=== PATIENT | male | born 1955 | race Caucasian/White ===

== ENCOUNTER 2017-04-29 11:33 | Inpatient (IN) | payer OTHER ==
[2017-04-29] MEDS ORDERED: NS 1000 ML 1,000 ML IV ONE (11:49)
[2017-04-29] MEDS ORDERED: NS 1000 ML 1,000 ML ONE (12:03)
[2017-04-29 12:08] LABS: BASOPHILS % (AUTO) 0.3 % (0.2-1.0); EOSINOPHILS % (AUTO) 0.4 % (0.9-2.9); HEMATOCRIT 42.8 % (42.0-54.0); HEMOGLOBIN 14.3 g/dL (13.5-18.0); LYMPHOCYTES % (AUTO) 7.8 % (21.0-51.0); MEAN CORPUSCULAR HEMOGLOBIN 31.3 pg (27.0-34.0); MEAN CORPUSCULAR HGB CONC 33.5 g/dL (33.0-35.0); MEAN CORPUSCULAR VOLUME 93.4 fL (80.0-100.0); MEAN PLATELET VOLUME 9.3 fL (7.4-11.0); MONOCYTES # (AUTO) 0.3 x10^3/uL (0.3-0.8); MONOCYTES % (AUTO) 2.5 % (0.0-13.0); NEUTROPHILS # (AUTO) 10.9 x10^3/uL (2.2-4.8); PLATELET COUNT 198 X10^3/uL (150.0-450.0); RED BLOOD COUNT 4.58 X10^6/uL (4.7-6.0); RED CELL DISTRIBUTION WIDTH 13.8 % (11.6-16.5); WHITE BLOOD COUNT 12.2 X10^3/uL (3.6-10.0)
--- NOTE | 2017-04-29 12:11 | RAD ---
History: Shortness of breath, cough for 2 weeks Study: Chest two views Findings: PA and left lateral projections of the chest demonstrates normal heart size. There is calci fication of the aortic arch and tortuosity of the descending aorta. There is dense consolidation of a ssess of the entirety of the right upper lobe. Ill-defined density in the right infrahilar area is al so present. There appear to be tiny bilateral pleural effusions. Impression: Right upper lobe and right middle lobe pneumonia is a. Follow-up to complete resolution i s recommended to exclude underlying neoplasm. Reported By:
[2017-04-29 12:13] LABS: BLOOD UREA NITROGEN 28 mg/dL (7-18); CALCIUM 8.7 mg/dL (8.5-10.1); CARBON DIOXIDE 29.8 mmol/L (21-32); CHLORIDE 104 mmol/L (98-107); COR NA(FOR HYPERGLY) 143 mmol/L (136-145); CREATININE 1.32 mg/dL (0.70-1.30); SODIUM 142 mmol/L (136-145); eGFR BLACK RACES > 60 (>60); eGFR NON BLACK RACES 58 (>60)
--- NOTE | 2017-04-29 12:25 | DR.GENAD ---
HPI - PCP Primary Care Physician: NONE - Complaint/Symptoms Chief Complaint Doctors Comments: Patient was diagnosed with pneumonia two days ago at [facility]. he was given a trial of outpatient management. Today his oxygen saturation had decreased from 95% to 86%. He was on amoxicillin and zithromycin. He has dyspnea. He admits to a pack per day cigarettes for years. He denies cardiac disease Chief Complaint:: "THEY SAY I HAVE PNEUMONIA, PT VERY WEAK HAVING A HARD TIME WALKING" - Source History Provided: Patient - Mode of Arrival Mode of Arrival: Ambulatory - Timing Onset of Chief Complaint: 04/25/17 PMH - PMH Past Medical History: Yes Past Medical History: Arthritis Past Surgical History: Yes Past Surgical History Comment: BENJI CONTRERAS - Family History History of Family Medical Conditions: No - Social History Does patient currently use any type of tobacco product: Yes Have you used tobacco products in the last 12 months: Yes Type of Tobacco Use: Cigarettes How many years tobacco product used: 45 Does any household member use tobacco: No Alcohol Use: None Do you use any recreational Drugs:: No Lives With: Family Lives Where: Home - infectious screening In the last 2 months have you had wt loss of >10#?: NO Have you had fever, night sweats or hemotysis?: No Have you traveled outside the country in the last 6 months?: No Isolation: Standard ROS - Review of Systems Eyes: No Symptoms Reported ENTM: No Symptoms Reported Respiratoy: Non-Productive Cough Cardiovascular: No Symptoms Reported Gastrointestinal/Abdominal: No Symptoms Reported Genitourinary: No Symptoms Reported Neurological: No Symptoms Reported Musculoskeletal: No Symptoms Reported Integumentary: No Symptoms Reported Hematologic/Lymphatic: No Symptoms Reported Endocrine: No Symptoms Reported Psychiatric: No Symptoms Reported All Other Systems: Reviewed and Negative PE - Vital Signs Vitals: Temperature 98 F Pulse Rate [Left Brachial] 103 Pulse Rate 108 Respiratory Rate 25 Blood Pressure [Left Arm] 133/78 Blood Pressure 121/73 O2 Sat by Pulse Oximetry 91 - General General Appearance: Alert, In Distress - Head Head Exam: Normal Inspection, Atraumatic - Eyes Eye exam: Normal Appearance, PERRL, EOMI - ENT ENT Exam: Normal Exam External Ear Exam: Normal External Inspection TM/Canal Exam: Bilateral Normal Nose Exam: Normal Nose Exam Mouth Exam: Normal Inspection Throat Exam: Normal Inspection - Neck Neck Exam: Normal Inspection, Full ROM - Chest Chest Inspection: Normal Inspection - Respiratory Respiratory Exam: Normal Lung Sounds Bilat Respiratory Exam: Bilateral Clear to Auscultation - Cardiovascular Cardiovascular Exam: Regular Rate, Normal Rhythm - Abdominal Exam Abdominal Exam: Normal Inspection Abdominal Tenderness: negative: RUQ, RLQ, LUQ, LLQ, Epigastrium, Suprapubic, Diffuse, Mild, Moderate, Severe, Other - Extremities Extremities Exam: Normal Inspection, Full ROM - Back Back Exam: Normal Inspection - Neurologic Neurological Exam: Alert, Oriented X3, CN II-XII Intact - Psychiatric Psychiatric Exam: Normal Affect - Skin Skin Exam: Warm, Dry Course - Reevaluation 1st: Unchanged ROR - Labs Reviewed Result Diagrams: 04/29/17 11:55 04/29/17 11:55 Laboratory: 04/29/17 12:43 Sputum - Expectorated Sputum - Final WBC 12.2 X10^3/uL (3.6-10.0) H 04/29/17 11:55 RBC 4.58 X10^6/uL (4.7-6.0) L 04/29/17 11:55 Hgb 14.3 g/dL (13.5-18.0) 04/29/17 11:55 Hct 42.8 % (42.0-54.0) 04/29/17 11:55 MCV 93.4 fL (80.0-100.0) 04/29/17 11:55 MCH 31.3 pg (27.0-34.0) 04/29/17 11:55 MCHC 33.5 g/dL (33.0-35.0) 04/29/17 11:55 RDW 13.8 % (11.6-16.5) 04/29/17 11:55 Plt Count 198 X10^3/uL (150.0-450.0) 04/29/17 11:55 MPV 9.3 fL (7.4-11.0) 04/29/17 11:55 Neut % 89.0 % (42.0-75.0) H 04/29/17 11:55 Lymph % 7.8 % (21.0-51.0) L 04/29/17 11:55 [place] % 2.5 % (0.0-13.0) 04/29/17 11:55 Eos % 0.4 % (0.9-2.9) L 04/29/17 11:55 Baso % 0.3 % (0.2-1.0) 04/29/17 11:55 Neut # 10.9 x10^3/uL (2.2-4.8) H 04/29/17 11:55 Lymph # 1.0 X10^3/uL (1.3-2.9) L 04/29/17 11:55 [place] # 0.3 x10^3/uL (0.3-0.8) 04/29/17 11:55 Eos # 0.0 x10^3/uL (0.0-0.2) 04/29/17 11:55 Baso # 0.0 X10^3/uL (0.0-0.1) 04/29/17 11:55 Absolute Nucleated RBC 0.0 /100WBC 04/29/17 11:55 Sample Site rbra 04/29/17 12:35 ABG pH 7.460 (7.35-7.45) H 04/29/17 12:35 ABG pCO2 37.0 mmHg (35.0-45.0) 04/29/17 12:35 ABG pO2 47.0 mmHg (80.0-100.0) L* 04/29/17 12:35 ABG HCO3 26.3 mmol/L (22-26) H 04/29/17 12:35 ABG O2 Saturation 85.0 % (90-100) L 04/29/17 12:35 ABG Base Excess 2.5 mmol/L (-2.0-2.0) H 04/29/17 12:35 Bruce Test poss 04/29/17 12:35 A-a Gradient 56.0 mmHg 04/29/17 12:35 FiO2 21 04/29/17 12:35 Blood Gas Comments elvin well gb 04/29/17 12:35 Sodium 142 mmol/L (136-145) 04/29/17 11:55 Corrected Sodium 143 mmol/L (136-145) 04/29/17 11:55 Potassium 3.4 mmol/L (3.5-5.1) L 04/29/17 11:55 Chloride 104 mmol/L (98-107) 04/29/17 11:55 Carbon Dioxide 29.8 mmol/L (21-32) 04/29/17 11:55 BUN 28 mg/dL (7-18) H 04/29/17 11:55 Creatinine 1.32 mg/dL (0.70-1.30) H 04/29/17 11:55 Est GFR (MDRD) Af Amer > 60 (>60) 04/29/17 11:55 Est GFR (MDRD) Non-Af 58 (>60) L 04/29/17 11:55 Glucose 146 mg/dL (65-99) H 04/29/17 11:55 Lactic Acid 2.3 mmol/L (0.4-2.0) H 04/29/17 12:26 Calcium 8.7 mg/dL (8.5-10.1) 04/29/17 11:55 - XRAY XRAY Interpreted by: Radiologist (Chest:Heart size is normal. There is calcification of the aortic arch and tortuosity of the desending aorta. There is dense consolidation of assess of the entirety of the right upper lobe. There is a ill defined density in the right infrahiar area is also present. There appear to be tiny bilateral pleural effusions.. Impression: right upper lobe and right middle lobe pneumonia.) - Diagnosis Discharge Problem: Hypoxia Pneumonia involving right lung Qualifiers: Pneumonia type: due to unspecified organism Lung location: upper lobe of lung Qualified Code(s): J18.1 - Lobar pneumonia, unspecified organism Right middle lobe pneumonia Qualifiers: Aspiration pneumonia type: unspecified - Discharge Plan Condition: Stable - Follow ups/Referrals Follow ups/Referrals: NFD,None [Primary Care Provider] - 3 days - Instructions
[2017-04-29 12:44] LABS: ABG BASE EXCESS 2.5 mmol/L (-2.0-2.0); ABG HCO3 26.3 mmol/L (22-26)
[2017-04-29 12:45] LABS: FRACTIONATED INSPIRED OXYGEN 21
[2017-04-29] MEDS ORDERED: LEVAQUIN PREMIX IV 750 MG 750 MG/150 ML BAG IV ONE ×2 (12:55→12:56)
[2017-04-29] MEDS ORDERED: DUONEB 0.5 MG/3 MG NEB PRN (14:33)
[2017-04-29 15:19] VITALS: BMI 26.8
[2017-04-29] MEDS ORDERED: FLUVIRIN IM ONE (15:20)
[2017-04-29] MEDS ORDERED: NS 1/2 1000 ML IV 1,000 ML IV ONE (15:39)
[2017-04-29] MEDS: NS 1/2 1000 ML IV 1,000 ML IV SCH (15:42)
[2017-04-29] MEDS: DUONEB 0.5 MG/3 MG NEB PRN (16:41)
[2017-04-29] MEDS: ZOSYN VIAL 4.5 GM 4.5 GM in NS 100 ML IV + SPIKE MINIBAG* 100 ML IV SCH (21:23)
[2017-04-30] MEDS: DUONEB 0.5 MG/3 MG NEB PRN ×4 (00:50→16:17)
[2017-04-30] MEDS: ZOSYN VIAL 4.5 GM 4.5 GM in NS 100 ML IV + SPIKE MINIBAG* 100 ML IV SCH ×3 (06:16→22:01)
[2017-04-30] MEDS: NS 1/2 1000 ML IV 1,000 ML IV SCH (06:16)
[2017-04-30 06:21] LABS: BASOPHILS % (AUTO) 0.3 % (0.2-1.0); EOSINOPHILS # (AUTO) 0.1 x10^3/uL (0.0-0.2); EOSINOPHILS % (AUTO) 0.9 % (0.9-2.9); HEMATOCRIT 39.2 % (42.0-54.0); HEMOGLOBIN 13.3 g/dL (13.5-18.0); LYMPHOCYTES # (AUTO) 0.9 X10^3/uL (1.3-2.9); LYMPHOCYTES % (AUTO) 10.5 % (21.0-51.0); MEAN CORPUSCULAR HEMOGLOBIN 31.2 pg (27.0-34.0); MEAN CORPUSCULAR HGB CONC 33.9 g/dL (33.0-35.0); MEAN CORPUSCULAR VOLUME 92.1 fL (80.0-100.0); MEAN PLATELET VOLUME 9.4 fL (7.4-11.0); MONOCYTES # (AUTO) 0.4 x10^3/uL (0.3-0.8); MONOCYTES % (AUTO) 4.9 % (0.0-13.0); NEUTROPHILS # (AUTO) 6.9 x10^3/uL (2.2-4.8); NEUTROPHILS % (AUTO) 83.4 % (42.0-75.0); PLATELET COUNT 176 X10^3/uL (150.0-450.0); RED BLOOD COUNT 4.26 X10^6/uL (4.7-6.0); RED CELL DISTRIBUTION WIDTH 13.9 % (11.6-16.5); WHITE BLOOD COUNT 8.2 X10^3/uL (3.6-10.0)
[2017-04-30 06:31] LABS: ALANINE AMINOTRANSFERASE 67 Units/L (12-78); ALBUMIN 1.9 g/dL (3.4-5.0); ALKALINE PHOSPHATASE 99 Units/L (46-116); ASPARTATE AMINO TRANSFERASE 283 Units/L (15-37); BLOOD UREA NITROGEN 17 mg/dL (7-18); CALCIUM 8.3 mg/dL (8.5-10.1); CARBON DIOXIDE 26.5 mmol/L (21-32); CHLORIDE 102 mmol/L (98-107); COR NA(FOR HYPERGLY) 138 mmol/L (136-145); CREATININE 1.09 mg/dL (0.70-1.30); SODIUM 137 mmol/L (136-145); TOTAL PROTEIN 5.7 g/dL (6.4-8.2); eGFR BLACK RACES > 60 (>60); eGFR NON BLACK RACES > 60 (>60)
--- NOTE | 2017-04-30 07:23 | RAD ---
HISTORY: Shortness of breath, cough. Symptoms for 2 weeks. Study: Single-view chest, done portably Comparison: 04/29/2017 Findings: Cardiac monitoring electrodes are noted on the chest. The trachea is midline. Heart size is normal. I ncreased interstitial markings are present bilaterally. More focal density involving the right hilar region extending into the right lower lobe is again seen. The upper lobe density may be more dense th an on prior studies. Findings are concerning for neoplastic process, perhaps a proximal obstruction. CT evaluation of the chest and/or bronchoscopy is recommended. No infiltrate is seen on the left. The osseous structures are intact. IMPRESSION: Further increase in density in the right perihilar process extending into right upper and right lower lobe regions. The central obstruction may be present. Neoplasm is a leading consideration. CT evalua tion of the chest and/or bronchoscopy is recommended. Reported By:
[2017-04-30] MEDS ORDERED: MAGNESIUM SULFATE 1 GM/100 mL PREMIX 1 GM/100 ML BAG IV PRN (07:24)
[2017-04-30] MEDS ORDERED: K-LYTE EFFERVESCENT PO PRN (07:24)
[2017-04-30] MEDS ORDERED: NS 100 ML IV 100 ML IV ONE ×2 (09:07→13:02)
[2017-04-30] MEDS: LEVAQUIN PREMIX IV 750 MG 750 MG/150 ML BAG IV SCH (10:10)
[2017-04-30] MEDS: XANAX PO SCH ×3 (10:17→22:02)
[2017-04-30] MEDS: K-RIDER 10 MEQ/NS 100 ML 10 MEQ/100 ML BAG IV PRN ×2 (12:00→13:04)
--- NOTE | 2017-04-30 13:05 | DR.H&P ---
H&P - History & Physical for Day of: H&P Date: 04/29/17 - Chief Complaint Chief Complaint: FEVER, SOB, COUGH WHEEZING - Allergies Allergies/Adverse Reactions: Allergies Allergy/AdvReac Type Severity Reaction Status Date / Time No Known Drug Allergies Allergy Verified 04/29/17 11:34 - History of Present Illness History of Present Illness: patient is a 62-year-old white male who is an ER admission to ICU after presenting with hypoxia and complaints of cough cold and congestion for several days. Patient's chest x-ray revealed a lower lobe pneumonia. Patient was admitted to ICU for further evaluation of shortness of breath and pneumonia. Patient started on respiratory therapy, blood and sputum cultures ordered as well as supplemental O2. We'll resume any home medications , cardiac monitoring, oxygen saturation monitoring. Patient states he has been sick approximately a week was previously seen in urgent care clinic and is taking by mouth antibiotics prior to admission without improvement. Patient denies any significant past medical history he is a half a pack per day smoker however no history of COPD, heart disease, high blood pressure or diabetes. - Past Medical History Past Medical History: Arthritis - Family History Family Medical History: Diabetes Mellitus, Cancer, [place], Coronary Artery Disease, Hypertension - Social History Does patient currently use any type of tobacco product: Yes Have you used tobacco products in the last 12 months: Yes Type of Tobacco Use: Cigarettes How many years tobacco product used: 11 Does any household member use tobacco: Yes Alcohol Use: Occasionally Drug Use: None - Medications Home Medications: Amoxicillin [AMOXIL CAP 500 MG *] 1 tab PO DAILY 04/29/17 [History Confirmed ] Azithromycin [ZITHROMAX Tab 250 mg *] 1 tab PO DAILY 04/29/17 [History Confirmed 04/29/17] Benzonatate [Benzonatate] 1 tab PO PRN PRN 04/29/17 [History Confirmed 04/29/17] - Review of Systems Constitutional: Fever, Weakness, Malaise ENT: No Symptoms Reported Respiratory: Shortness of Breath, Sputum, Wheezing Cardiovascular: No Symptoms Reported Gastrointestinal: No Symptoms Reported Genitourinary: No Symptoms Reported Musculoskeletal: No Symptoms Reported Skin: No Symptoms Reported Neurological: No Symptoms Reported - Physical Exam Vital Signs: Temperature 100.3 F Pulse Rate [Left Brachial] 114 Pulse Rate 116 Respiratory Rate 10 Blood Pressure [Left Arm] 131/82 Blood Pressure 121/73 O2 Sat by Pulse Oximetry 90 Oriented: Normal Eyes: Normal Ear: Normal Nose: Normal Throat: Normal Respiratory: Rhonchi Throughout, RLL Diminished, LLL Diminished Cardiovascular: Normal : Normal Auscultation: Bowel Sounds: Normal Palpation: Normal Tenderness: Normal Skin: Normal Musculoskeletal: Normal Psychiatric: Anxiety Affect: Anxious Speech Pattern: Clear, Appropriate - Assessment/Plan (1) Pneumonia involving right lung Qualifiers: Pneumonia type: due to unspecified organism Lung location: upper lobe of lung Qualified Code(s): J18.1 - Lobar pneumonia, unspecified organism Status: Acute Plan: admit, cardiac monitoring oxygen saturation monitoring respiratory therapy , IV antibiotics, sputum specimen, admission labs and repeat a.m. labs, supplemental O2, IV hydration (2) Hypoxia Status: Acute
[2017-04-30] MEDS ORDERED: FLUVIRIN IM ONE (13:06)
[2017-04-30] MEDS: MAG-OX TAB PO PRN (13:07)
--- NOTE | 2017-04-30 14:40 | CT ---
HISTORY: Abnormal chest x-ray, pneumonia Study: CT chest with IV contrast Comparison: Chest x-ray done 04/30/2017 at 6:45 a.m.. Technique: Multiple axial images of the chest were obtained from the thoracic inlet to the upper abdo men during the administration of IV contrast. Coronal and sagittal images are also reviewed. Dose red uction techniques utilized automatic exposure control. Findings: There are multiple small lymph nodes are present in the central mediastinum which are likely reactive . a small pericardial effusion is present measuring about a cm or less in thickness. The thoracic ao rta is normal in its contour without evidence for aneurysmal dilatation. There are coronary artery ca lcifications present bilaterally, most notably in the LAD. The central pulmonary arterial system does not demonstrate central filling defects to suggest pulmonary emboli. Evaluation of the lung parenchyma reveals very dense infiltrate present involving the right upper lob e region involving anterior and apical posterior segments. Small amount of infiltrate is present in t he right middle lobe as well. Small amount of infiltrate is present in the left upper lobe region. Al though infiltrates are dense on the right side, there is still air bronchograms present. Findings hav e the appearance of inflammation; however, bronchoalveolar carcinoma may produce similar findings. No evidence of bronchial obstruction is seen. No significant hilar adenopathy is seen. A small right-si ded pleural effusion is present.. No pulmonary nodule or mass can be identified. The bony thorax is unremarkable in its appearance. There is a 4 cm simple cyst in the liver in the subcapsular region on the right. A small mass is present in the left adrenal gland which measures about 1.3 cm in size. This is hypo attenuating and likely represents an adrenal adenoma there is marked fatty change presen t involving the pancreas.. IMPRESSION: Extensive right upper lobe infiltrate. Lesser but still significant infiltrates are present involving the right middle and left upper lobe regions as well. These areas displayed air bronchograms and lik gigi is on an inflammatory basis. Bronchoalveolar carcinoma is a consideration. A right-sided pleural effusion is present. No significant adenopathy is seen. Reported By:
[2017-04-30] MEDS ORDERED: K-DUR TAB 20 MEQ PO ONE (19:07)
[2017-04-30] MEDS: K-DUR TAB 20 MEQ PO ONE (19:14)
[2017-04-30] MEDS ORDERED: NS 1/2 1000 ML IV 1,000 ML IV ONE (23:54)
[2017-05-01] MEDS: DUONEB 0.5 MG/3 MG NEB PRN ×5 (00:07→20:09)
[2017-05-01] MEDS: ZOSYN VIAL 4.5 GM 4.5 GM in NS 100 ML IV + SPIKE MINIBAG* 100 ML IV SCH ×3 (05:38→22:13)
[2017-05-01] MEDS: XANAX PO SCH ×3 (05:38→21:30)
[2017-05-01 06:21] LABS: BASOPHILS % (AUTO) 0.4 % (0.2-1.0); EOSINOPHILS # (AUTO) 0.1 x10^3/uL (0.0-0.2); EOSINOPHILS % (AUTO) 1.9 % (0.9-2.9); HEMOGLOBIN 13.3 g/dL (13.5-18.0); LYMPHOCYTES # (AUTO) 1.1 X10^3/uL (1.3-2.9); MEAN CORPUSCULAR HEMOGLOBIN 31.3 pg (27.0-34.0); MEAN CORPUSCULAR VOLUME 92.2 fL (80.0-100.0); MEAN PLATELET VOLUME 8.8 fL (7.4-11.0); MONOCYTES # (AUTO) 0.6 x10^3/uL (0.3-0.8); MONOCYTES % (AUTO) 8.6 % (0.0-13.0); NEUTROPHILS # (AUTO) 5.2 x10^3/uL (2.2-4.8); NEUTROPHILS % (AUTO) 74.1 % (42.0-75.0); PLATELET COUNT 171 X10^3/uL (150.0-450.0); RED BLOOD COUNT 4.23 X10^6/uL (4.7-6.0)
[2017-05-01 06:50] LABS: ALANINE AMINOTRANSFERASE 59 Units/L (12-78); ALBUMIN 1.9 g/dL (3.4-5.0); ALKALINE PHOSPHATASE 95 Units/L (46-116); ASPARTATE AMINO TRANSFERASE 128 Units/L (15-37); BLOOD UREA NITROGEN 11 mg/dL (7-18); CALCIUM 8.3 mg/dL (8.5-10.1); CARBON DIOXIDE 26.5 mmol/L (21-32); CHLORIDE 102 mmol/L (98-107); COR NA(FOR HYPERGLY) 139 mmol/L (136-145); CREATININE 0.93 mg/dL (0.70-1.30); MAGNESIUM 1.8 mg/dL (1.7-2.9); SODIUM 138 mmol/L (136-145); TOTAL PROTEIN 5.8 g/dL (6.4-8.2); eGFR BLACK RACES > 60 (>60); eGFR NON BLACK RACES > 60 (>60)
[2017-05-01 07:08] LABS: BAND NEUTROPHILS % 3 % (0-10); PLATELET MORPHOLOGY COMMENT NORMAL (NORMAL)
[2017-05-01] MEDS ORDERED: K-DUR TAB 20 MEQ PO ONE ×2 (08:45→16:36)
[2017-05-01] MEDS: LEVAQUIN PREMIX IV 750 MG 750 MG/150 ML BAG IV SCH (08:51)
[2017-05-01] MEDS: K-DUR TAB 20 MEQ PO ONE ×4 (08:52→16:42)
[2017-05-01] MEDS ORDERED: ROBITUSSIN DM ONE (13:38)
[2017-05-01] MEDS: ROBITUSSIN DM PO PRN (13:41)
[2017-05-01] MEDS ORDERED: SOLU-Medrol 40 MG VIAL ONE (15:05)
[2017-05-01] MEDS: SOLU-Medrol 125 MG VIAL IVP SCH ×2 (15:09→21:30)
[2017-05-01 15:34] LABS: MAGNESIUM 1.8 mg/dL (1.7-2.9)
[2017-05-01] MEDS: MAG-OX TAB PO PRN (16:40)
[2017-05-01] MEDS ORDERED: NS 1/2 1000 ML IV 1,000 ML IV ONE (21:09)
[2017-05-01] MEDS ORDERED: NS 100 ML IV 100 ML IV ONE (22:03)
[2017-05-01] MEDS ORDERED: ZOSYN VIAL 4.5 GM IV ONE (22:03)
[2017-05-01] MEDS: NS 1/2 1000 ML IV 1,000 ML IV SCH ×2 (22:45)
[2017-05-02 06:21] LABS: BASOPHILS % (AUTO) 0.2 % (0.2-1.0); HEMATOCRIT 42.3 % (42.0-54.0); HEMOGLOBIN 14.4 g/dL (13.5-18.0); LYMPHOCYTES # (AUTO) 0.9 X10^3/uL (1.3-2.9); LYMPHOCYTES % (AUTO) 10.2 % (21.0-51.0); MEAN CORPUSCULAR HEMOGLOBIN 31.5 pg (27.0-34.0); MEAN CORPUSCULAR VOLUME 92.6 fL (80.0-100.0); MEAN PLATELET VOLUME 9.2 fL (7.4-11.0); MONOCYTES # (AUTO) 0.2 x10^3/uL (0.3-0.8); MONOCYTES % (AUTO) 2.1 % (0.0-13.0); NEUTROPHILS # (AUTO) 7.3 x10^3/uL (2.2-4.8); NEUTROPHILS % (AUTO) 87.5 % (42.0-75.0); PLATELET COUNT 202 X10^3/uL (150.0-450.0); RED BLOOD COUNT 4.57 X10^6/uL (4.7-6.0); RED CELL DISTRIBUTION WIDTH 13.8 % (11.6-16.5); WHITE BLOOD COUNT 8.3 X10^3/uL (3.6-10.0)
[2017-05-02] MEDS ORDERED: ZOSYN VIAL 4.5 GM IV ONE ×3 (06:21→21:05)
[2017-05-02] MEDS ORDERED: NS 100 ML IV 100 ML IV ONE ×2 (06:22→14:35)
[2017-05-02 06:40] LABS: ALANINE AMINOTRANSFERASE 61 Units/L (12-78); ALBUMIN 1.9 g/dL (3.4-5.0); ALKALINE PHOSPHATASE 102 Units/L (46-116); ASPARTATE AMINO TRANSFERASE 64 Units/L (15-37); BLOOD UREA NITROGEN 17 mg/dL (7-18); CALCIUM 8.6 mg/dL (8.5-10.1); CARBON DIOXIDE 25.6 mmol/L (21-32); CHLORIDE 103 mmol/L (98-107); COR CA(FOR HYPOALB) 10.3 mg/dL (8.5-10.1); COR NA(FOR HYPERGLY) 144 mmol/L (136-145); CREATININE 0.87 mg/dL (0.70-1.30); SODIUM 140 mmol/L (136-145); TOTAL PROTEIN 6.2 g/dL (6.4-8.2); eGFR BLACK RACES > 60 (>60); eGFR NON BLACK RACES > 60 (>60)
[2017-05-02] MEDS: ZOSYN VIAL 4.5 GM 4.5 GM in NS 100 ML IV + SPIKE MINIBAG* 100 ML IV SCH ×3 (06:45→21:11)
[2017-05-02] MEDS: XANAX PO SCH ×3 (06:45→21:11)
[2017-05-02] MEDS: SOLU-Medrol 125 MG VIAL IVP SCH (06:45)
--- NOTE | 2017-05-02 08:46 | RAD ---
HISTORY: Pneumonia Study: Single-view chest, done portably Comparison: CT scan of the chest done 04/30/2017. Findings: Trachea is midline. The heart size is normal. There is aortic uncoiling. There is considerable improv ement in aeration is noted in the right upper lobe infiltrate. Milder infiltrates are present in left upper lobe and right middle lobe regions. These areas displays some improvement also. No new infiltr ate is seen. There is evidence of an old fracture of the right mid clavicle. Remainder of osseous str uctures are intact. IMPRESSION: Dense, but improving, infiltrates involving right upper lobe, left upper lobe and right middle lobe r egions. Reported By:
[2017-05-02] MEDS: LEVAQUIN PREMIX IV 750 MG 750 MG/150 ML BAG IV SCH (09:19)
[2017-05-02] MEDS: DUONEB 0.5 MG/3 MG NEB PRN (09:19)
[2017-05-02] MEDS ORDERED: MILK OF MAGNESIA PO PRN (11:14)
[2017-05-02] MEDS ORDERED: COLACE CAP 100 MG PO PRN (11:15)
[2017-05-02] MEDS: MAG-OX TAB PO PRN (11:24)
[2017-05-02] MEDS ORDERED: NS 100 ML IV + SPIKE MINIBAG* 100 ML IV ONE (21:06)
[2017-05-02] MEDS ORDERED: NS 1/2 1000 ML IV 1,000 ML IV ONE (21:09)
[2017-05-02] MEDS: NS 1/2 1000 ML IV 1,000 ML IV SCH (21:11)
[2017-05-02] MEDS: AMBIEN PO PRN (21:11)
[2017-05-02] MEDS: ROBITUSSIN DM PO PRN (21:11)
[2017-05-03] MEDS ORDERED: ZOSYN VIAL 4.5 GM IV ONE ×3 (05:20→20:31)
[2017-05-03] MEDS ORDERED: NS 100 ML IV 100 ML IV ONE ×3 (05:20→20:32)
[2017-05-03] MEDS: ZOSYN VIAL 4.5 GM 4.5 GM in NS 100 ML IV + SPIKE MINIBAG* 100 ML IV SCH ×3 (05:32→21:01)
[2017-05-03] MEDS: XANAX PO SCH ×3 (05:32→21:01)
[2017-05-03 05:37] LABS: BASOPHILS % (AUTO) 0.1 % (0.2-1.0); EOSINOPHILS % (AUTO) 0.1 % (0.9-2.9); HEMATOCRIT 37.5 % (42.0-54.0); HEMOGLOBIN 12.6 g/dL (13.5-18.0); LYMPHOCYTES # (AUTO) 1.7 X10^3/uL (1.3-2.9); LYMPHOCYTES % (AUTO) 10.6 % (21.0-51.0); MEAN CORPUSCULAR HEMOGLOBIN 31.1 pg (27.0-34.0); MEAN CORPUSCULAR HGB CONC 33.6 g/dL (33.0-35.0); MEAN CORPUSCULAR VOLUME 92.4 fL (80.0-100.0); MEAN PLATELET VOLUME 9.5 fL (7.4-11.0); MONOCYTES # (AUTO) 0.9 x10^3/uL (0.3-0.8); MONOCYTES % (AUTO) 5.4 % (0.0-13.0); NEUTROPHILS # (AUTO) 13.3 x10^3/uL (2.2-4.8); NEUTROPHILS % (AUTO) 83.8 % (42.0-75.0); PLATELET COUNT 210 X10^3/uL (150.0-450.0); RED BLOOD COUNT 4.06 X10^6/uL (4.7-6.0); RED CELL DISTRIBUTION WIDTH 13.7 % (11.6-16.5); WHITE BLOOD COUNT 15.8 X10^3/uL (3.6-10.0)
[2017-05-03 05:46] LABS: ALANINE AMINOTRANSFERASE 61 Units/L (12-78); ALBUMIN 1.7 g/dL (3.4-5.0); ALKALINE PHOSPHATASE 91 Units/L (46-116); ASPARTATE AMINO TRANSFERASE 44 Units/L (15-37); BLOOD UREA NITROGEN 23 mg/dL (7-18); CALCIUM 8.1 mg/dL (8.5-10.1); CARBON DIOXIDE 29.2 mmol/L (21-32); CHLORIDE 106 mmol/L (98-107); COR CA(FOR HYPOALB) 9.9 mg/dL (8.5-10.1); COR NA(FOR HYPERGLY) 140 mmol/L (136-145); SODIUM 137 mmol/L (136-145); TOTAL PROTEIN 4.8 g/dL (6.4-8.2); eGFR BLACK RACES > 60 (>60); eGFR NON BLACK RACES > 60 (>60)
[2017-05-03] MEDS: NS 1/2 1000 ML IV 1,000 ML IV SCH ×3 (06:36→21:02)
[2017-05-03] MEDS: LEVAQUIN PREMIX IV 750 MG 750 MG/150 ML BAG IV SCH (09:21)
[2017-05-03] MEDS: TYLENOL 325 MG TAB PO PRN (10:51)
[2017-05-03] MEDS: DUONEB 0.5 MG/3 MG NEB PRN (20:33)
[2017-05-03] MEDS ORDERED: NS 1/2 1000 ML IV 1,000 ML IV ONE (20:35)
[2017-05-03] MEDS: AMBIEN PO PRN ×2 (21:01→21:03)
[2017-05-03] MEDS: TUSSIONEX PENNKINETIC SUSP PO PRN (21:01)
[2017-05-03] MEDS: ROBITUSSIN DM PO PRN (21:01)
[2017-05-04] MEDS: TYLENOL 325 MG TAB PO PRN (01:41)
[2017-05-04] MEDS ORDERED: ZOSYN VIAL 4.5 GM IV ONE ×3 (05:05→20:10)
[2017-05-04] MEDS ORDERED: NS 100 ML IV 100 ML IV ONE ×3 (05:06→20:10)
[2017-05-04 05:32] LABS: ALANINE AMINOTRANSFERASE 59 Units/L (12-78); ALBUMIN 1.8 g/dL (3.4-5.0); ALKALINE PHOSPHATASE 75 Units/L (46-116); ASPARTATE AMINO TRANSFERASE 38 Units/L (15-37); BLOOD UREA NITROGEN 16 mg/dL (7-18); CALCIUM 8.2 mg/dL (8.5-10.1); CARBON DIOXIDE 29.2 mmol/L (21-32); CHLORIDE 103 mmol/L (98-107); COR NA(FOR HYPERGLY) 141 mmol/L (136-145); CREATININE 0.88 mg/dL (0.70-1.30); SODIUM 140 mmol/L (136-145); TOTAL PROTEIN 5.5 g/dL (6.4-8.2); eGFR BLACK RACES > 60 (>60); eGFR NON BLACK RACES > 60 (>60)
[2017-05-04] MEDS: XANAX PO SCH ×3 (05:32→21:04)
[2017-05-04] MEDS: ZOSYN VIAL 4.5 GM 4.5 GM in NS 100 ML IV + SPIKE MINIBAG* 100 ML IV SCH ×3 (05:33→21:02)
[2017-05-04 06:25] LABS: BASOPHILS # (AUTO) 0.2 X10^3/uL (0.0-0.1); BASOPHILS % (AUTO) 1.9 % (0.2-1.0); EOSINOPHILS # (AUTO) 0.3 x10^3/uL (0.0-0.2); EOSINOPHILS % (AUTO) 3.3 % (0.9-2.9); HEMATOCRIT 39.1 % (42.0-54.0); HEMOGLOBIN 13.1 g/dL (13.5-18.0); LYMPHOCYTES # (AUTO) 1.8 X10^3/uL (1.3-2.9); LYMPHOCYTES % (AUTO) 19.5 % (21.0-51.0); MEAN CORPUSCULAR HEMOGLOBIN 30.9 pg (27.0-34.0); MEAN CORPUSCULAR HGB CONC 33.5 g/dL (33.0-35.0); MEAN CORPUSCULAR VOLUME 92.2 fL (80.0-100.0); MEAN PLATELET VOLUME 9.1 fL (7.4-11.0); MONOCYTES # (AUTO) 0.5 x10^3/uL (0.3-0.8); MONOCYTES % (AUTO) 5.5 % (0.0-13.0); NEUTROPHILS # (AUTO) 6.5 x10^3/uL (2.2-4.8); NEUTROPHILS % (AUTO) 69.8 % (42.0-75.0); PLATELET COUNT 259 X10^3/uL (150.0-450.0); RED BLOOD COUNT 4.24 X10^6/uL (4.7-6.0); RED CELL DISTRIBUTION WIDTH 13.7 % (11.6-16.5); WHITE BLOOD COUNT 9.3 X10^3/uL (3.6-10.0)
[2017-05-04] MEDS: MAG-OX TAB PO PRN (06:45)
--- NOTE | 2017-05-04 06:48 | RAD ---
HISTORY: Follow-up pneumonia Study: Chest AP portable Comparison: 05/02/2017 Findings: The heart is within normal limits in size. No congestive heart failure is noted. Right upper and righ t lower lobe infiltrates are unchanged. The left lung is now free of alveolar infiltrates. The alveol ar infiltrates are superimposed on hyperinflation and interstitial lung changes bilaterally. No defin ite pleural effusions are identified. The bony thorax is unremarkable. IMPRESSION: Unchanged right upper and right lower lobe infiltrates Left lung free of acute alveolar infiltrates Hyperinflation with chronic interstitial lung changes Reported By:
[2017-05-04 07:01] LABS: BAND NEUTROPHILS % 3 % (0-10); PLATELET MORPHOLOGY COMMENT NORMAL (NORMAL)
[2017-05-04] MEDS: ROBITUSSIN DM PO PRN ×3 (08:18→21:03)
[2017-05-04] MEDS: LEVAQUIN PREMIX IV 750 MG 750 MG/150 ML BAG IV SCH (08:19)
[2017-05-04 10:21] LABS: ABG BASE EXCESS 8.2 mmol/L (-2.0-2.0)
[2017-05-04 10:22] LABS: ABG ALLEN TEST POS; ABG HCO3 31.9 mmol/L (22-26); FRACTIONATED INSPIRED OXYGEN 0.21
[2017-05-04] MEDS: DUONEB 0.5 MG/3 MG NEB PRN ×2 (11:36→16:26)
[2017-05-04] MEDS ORDERED: NS 250 ML IV 250 ML IV ONE (14:01)
[2017-05-04] MEDS ORDERED: ZITHROMAX INJ 500 MG VIAL IV ONE (14:01)
[2017-05-04] MEDS: ZITHROMAX INJ 500 MG VIAL 500 MG in NS 250 ML IV 250 ML IV SCH (14:50)
[2017-05-04] MEDS ORDERED: NS 1/2 1000 ML IV 1,000 ML IV ONE (19:53)
[2017-05-04] MEDS: NS 1/2 1000 ML IV 1,000 ML IV SCH ×2 (21:02→21:04)
[2017-05-04] MEDS: TUSSIONEX PENNKINETIC SUSP PO PRN (21:03)
[2017-05-04] MEDS: AMBIEN PO PRN (21:03)
[2017-05-04] MEDS: MAALOX or MYLANTA PO PRN (22:56)
[2017-05-05] MEDS ORDERED: NS 100 ML IV 100 ML IV ONE ×3 (04:57→20:43)
[2017-05-05] MEDS ORDERED: ZOSYN VIAL 4.5 GM IV ONE ×3 (04:57→20:42)
[2017-05-05] MEDS: ZOSYN VIAL 4.5 GM 4.5 GM in NS 100 ML IV + SPIKE MINIBAG* 100 ML IV SCH ×3 (05:05→21:14)
[2017-05-05] MEDS: XANAX PO SCH ×3 (05:06→21:14)
[2017-05-05 06:02] LABS: ALANINE AMINOTRANSFERASE 50 Units/L (12-78); ALKALINE PHOSPHATASE 75 Units/L (46-116); ASPARTATE AMINO TRANSFERASE 30 Units/L (15-37); BLOOD UREA NITROGEN 11 mg/dL (7-18); CALCIUM 8.3 mg/dL (8.5-10.1); CHLORIDE 102 mmol/L (98-107); COR CA(FOR HYPOALB) 9.9 mg/dL (8.5-10.1); COR NA(FOR HYPERGLY) 138 mmol/L (136-145); CREATININE 0.78 mg/dL (0.70-1.30); MAGNESIUM 1.9 mg/dL (1.7-2.9); SODIUM 137 mmol/L (136-145); TOTAL PROTEIN 5.7 g/dL (6.4-8.2); eGFR BLACK RACES > 60 (>60); eGFR NON BLACK RACES > 60 (>60)
[2017-05-05 06:21] LABS: BASOPHILS % (AUTO) 0.2 % (0.2-1.0); EOSINOPHILS # (AUTO) 0.3 x10^3/uL (0.0-0.2); EOSINOPHILS % (AUTO) 2.7 % (0.9-2.9); HEMATOCRIT 40.3 % (42.0-54.0); HEMOGLOBIN 13.6 g/dL (13.5-18.0); LYMPHOCYTES # (AUTO) 1.8 X10^3/uL (1.3-2.9); LYMPHOCYTES % (AUTO) 16.1 % (21.0-51.0); MEAN CORPUSCULAR HGB CONC 33.7 g/dL (33.0-35.0); MEAN CORPUSCULAR VOLUME 92.2 fL (80.0-100.0); MEAN PLATELET VOLUME 9.1 fL (7.4-11.0); MONOCYTES # (AUTO) 0.6 x10^3/uL (0.3-0.8); MONOCYTES % (AUTO) 5.3 % (0.0-13.0); NEUTROPHILS # (AUTO) 8.6 x10^3/uL (2.2-4.8); NEUTROPHILS % (AUTO) 75.7 % (42.0-75.0); PLATELET COUNT 312 X10^3/uL (150.0-450.0); RED BLOOD COUNT 4.37 X10^6/uL (4.7-6.0); RED CELL DISTRIBUTION WIDTH 13.7 % (11.6-16.5); WHITE BLOOD COUNT 11.4 X10^3/uL (3.6-10.0)
[2017-05-05 07:23] LABS: BAND NEUTROPHILS % 6 % (0-10)
[2017-05-05 07:24] LABS: PLATELET MORPHOLOGY COMMENT NORMAL (NORMAL)
--- NOTE | 2017-05-05 08:17 | CT ---
HISTORY: Pneumonia, shortness of breath Study: CT chest with contrast Comparison: Chest x-ray 05/04/2017 Technique: Axial post-contrast images with coronal and sagittal reformats. Dose reduction procedures were used with mA/kv adjusted for body size. Findings: Examination of the mediastinum demonstrated no evidence for mediastinal masses, enlarged mediastinal adenopathy, or enlarged hilar adenopathy. Nonenlarged precarinal nodes are present likely reactive. C alcific atherosclerotic change is present in a nondilated thoracic aorta. Coronary artery calcificati ons are present. There is a right pleural effusion present. A smaller minimal left pleural effusion i s present. No chest wall or axillary abnormality is identified. Those portions of the upper abdominal organs visualized were within normal limits. There is a benign hepatic cyst present in the right hep atic lobe. Examination of the right lung demonstrated diffuse interstitial infiltrates with superimpo sed areas of alveolar consolidation in the right upper and right middle lobes. The remainder of the l ruddy hannon are hyperinflated but clear. No definite nodules, masses, or bronchiectasis is identified. There is peribronchial thickening consistent with bronchitis which could be acute, chronic, or both. IMPRESSION: Diffuse interstitial infiltrates throughout the right upper and right middle lobes with superimposed areas of alveolar consolidation most consistent with pneumonia. Follow-up until complete resolution i s recommended in order to exclude underlying neoplasm Peribronchial thickening consistent with bronchitis which could be acute, chronic, or both Hyperinflation Bilateral small pleural effusions right greater than left Reported By:
[2017-05-05] MEDS ORDERED: LASIX IVP ONE (08:23)
[2017-05-05] MEDS: MUCOMYST 20% 200 MG/ML NEB SCH ×5 (08:27→20:56)
[2017-05-05] MEDS: LEVAQUIN PREMIX IV 750 MG 750 MG/150 ML BAG IV SCH (08:36)
[2017-05-05] MEDS: ZITHROMAX INJ 500 MG VIAL 500 MG in NS 250 ML IV 250 ML IV SCH (08:36)
[2017-05-05] MEDS: SOLU-Medrol 40 MG VIAL IVP SCH ×3 (08:40→21:13)
[2017-05-05] MEDS: DUONEB 0.5 MG/3 MG NEB PRN ×4 (08:53→20:57)
[2017-05-05] MEDS ORDERED: LASIX IVP NR (09:00)
[2017-05-05] MEDS ORDERED: BUTT CREAM (COMPOUND) ONE (11:53)
[2017-05-05] MEDS ORDERED: BUTT CREAM (COMPOUND) TOP PRN ×2 (11:59→13:00)
[2017-05-05] MEDS ORDERED: SOLU-Medrol 125 MG VIAL ONE (12:55)
[2017-05-05] MEDS ORDERED: NS 1/2 1000 ML IV 1,000 ML IV ONE (15:31)
[2017-05-05] MEDS: NS 1/2 1000 ML IV 1,000 ML IV SCH (20:03)
[2017-05-05] MEDS: AMBIEN PO PRN (21:14)
[2017-05-05] MEDS: ROBITUSSIN DM PO PRN (21:14)
[2017-05-05] MEDS: TUSSIONEX PENNKINETIC SUSP PO PRN (21:14)
[2017-05-05] MEDS: MAALOX or MYLANTA PO PRN (23:13)
[2017-05-06] MEDS ORDERED: NS 100 ML IV 100 ML IV ONE (04:47)
[2017-05-06] MEDS ORDERED: ZOSYN VIAL 4.5 GM IV ONE (04:47)
[2017-05-06] MEDS: NS 1/2 1000 ML IV 1,000 ML IV SCH ×2 (05:08→21:33)
[2017-05-06] MEDS: ZOSYN VIAL 4.5 GM 4.5 GM in NS 100 ML IV + SPIKE MINIBAG* 100 ML IV SCH (05:09)
[2017-05-06] MEDS: SOLU-Medrol 40 MG VIAL IVP SCH (05:09)
[2017-05-06] MEDS: XANAX PO SCH ×3 (05:09→21:34)
[2017-05-06 05:56] LABS: BASOPHILS % (AUTO) 0.2 % (0.2-1.0); EOSINOPHILS % (AUTO) 0.1 % (0.9-2.9); HEMATOCRIT 38.8 % (42.0-54.0); LYMPHOCYTES % (AUTO) 6.5 % (21.0-51.0); MEAN CORPUSCULAR HEMOGLOBIN 31.3 pg (27.0-34.0); MEAN CORPUSCULAR HGB CONC 33.6 g/dL (33.0-35.0); MEAN CORPUSCULAR VOLUME 93.1 fL (80.0-100.0); MEAN PLATELET VOLUME 9.1 fL (7.4-11.0); MONOCYTES # (AUTO) 0.5 x10^3/uL (0.3-0.8); MONOCYTES % (AUTO) 3.5 % (0.0-13.0); NEUTROPHILS % (AUTO) 89.7 % (42.0-75.0); PLATELET COUNT 353 X10^3/uL (150.0-450.0); RED BLOOD COUNT 4.17 X10^6/uL (4.7-6.0); RED CELL DISTRIBUTION WIDTH 13.6 % (11.6-16.5); WHITE BLOOD COUNT 15.6 X10^3/uL (3.6-10.0)
[2017-05-06 06:21] LABS: ALANINE AMINOTRANSFERASE 41 Units/L (12-78); ALKALINE PHOSPHATASE 78 Units/L (46-116); ASPARTATE AMINO TRANSFERASE 16 Units/L (15-37); BLOOD UREA NITROGEN 16 mg/dL (7-18); CALCIUM 8.4 mg/dL (8.5-10.1); CARBON DIOXIDE 28.4 mmol/L (21-32); CHLORIDE 102 mmol/L (98-107); COR NA(FOR HYPERGLY) 144 mmol/L (136-145); SODIUM 138 mmol/L (136-145); TOTAL PROTEIN 5.8 g/dL (6.4-8.2); eGFR BLACK RACES > 60 (>60); eGFR NON BLACK RACES > 60 (>60)
[2017-05-06] MEDS ORDERED: NS 1/2 1000 ML IV 1,000 ML IV ONE (07:56)
--- NOTE | 2017-05-06 08:53 | RAD ---
Examination: AP chest History: Pneumonia, SOB Comparison reference: 05/04/2017. Findings: Continued normal heart size. The left lung remains grossly clear; there is suggestion of sm all left pleural effusion. There is persistent infiltrate in the right upper lobe. There is interval improvement in the similar process in the right lung base. There is no evidence for developing mass, pneumothorax or right pleural effusion. Impression: Improving infiltrate right lower lobe. Extensive persistent right upper lobe disease. Con tinued follow-up indicated. Reported By:
[2017-05-06] MEDS: DUONEB 0.5 MG/3 MG NEB PRN ×4 (09:05→21:00)
[2017-05-06] MEDS: MUCOMYST 20% 200 MG/ML NEB SCH ×4 (09:05→21:00)
[2017-05-06] MEDS: LEVAQUIN PREMIX IV 750 MG 750 MG/150 ML BAG IV SCH (09:06)
[2017-05-06] MEDS: ZITHROMAX INJ 500 MG VIAL 500 MG in NS 250 ML IV 250 ML IV SCH (09:06)
[2017-05-06 11:20] LABS: ABG BASE EXCESS 6.2 mmol/L (-2.0-2.0); ABG HCO3 29.5 mmol/L (22-26)
[2017-05-06 11:21] LABS: FRACTIONATED INSPIRED OXYGEN 21
[2017-05-06] MEDS: MAALOX or MYLANTA PO PRN (21:00)
[2017-05-06] MEDS: TUSSIONEX PENNKINETIC SUSP PO PRN (21:34)
[2017-05-06] MEDS: AMBIEN PO PRN (21:34)
[2017-05-06] MEDS: ROBITUSSIN DM PO PRN (21:34)
[2017-05-07] MEDS ORDERED: NS 1/2 1000 ML IV 1,000 ML IV ONE (00:58)
[2017-05-07] MEDS: XANAX PO SCH (05:16)
[2017-05-07] MEDS: NS 1/2 1000 ML IV 1,000 ML IV SCH (05:17)
[2017-05-07 06:09] LABS: BASOPHILS % (AUTO) 0.2 % (0.2-1.0); EOSINOPHILS # (AUTO) 0.3 x10^3/uL (0.0-0.2); HEMATOCRIT 36.6 % (42.0-54.0); HEMOGLOBIN 12.3 g/dL (13.5-18.0); LYMPHOCYTES % (AUTO) 23.8 % (21.0-51.0); MEAN CORPUSCULAR HGB CONC 33.5 g/dL (33.0-35.0); MEAN CORPUSCULAR VOLUME 92.6 fL (80.0-100.0); MEAN PLATELET VOLUME 9.2 fL (7.4-11.0); MONOCYTES # (AUTO) 0.9 x10^3/uL (0.3-0.8); MONOCYTES % (AUTO) 7.5 % (0.0-13.0); NEUTROPHILS # (AUTO) 8.3 x10^3/uL (2.2-4.8); NEUTROPHILS % (AUTO) 66.5 % (42.0-75.0); PLATELET COUNT 416 X10^3/uL (150.0-450.0); RED BLOOD COUNT 3.96 X10^6/uL (4.7-6.0); RED CELL DISTRIBUTION WIDTH 13.7 % (11.6-16.5); WHITE BLOOD COUNT 12.5 X10^3/uL (3.6-10.0)
[2017-05-07 06:19] LABS: ALANINE AMINOTRANSFERASE 50 Units/L (12-78); ALBUMIN 1.9 g/dL (3.4-5.0); ALKALINE PHOSPHATASE 72 Units/L (46-116); ASPARTATE AMINO TRANSFERASE 27 Units/L (15-37); BLOOD UREA NITROGEN 18 mg/dL (7-18); CALCIUM 8.3 mg/dL (8.5-10.1); CARBON DIOXIDE 30.1 mmol/L (21-32); CHLORIDE 105 mmol/L (98-107); COR NA(FOR HYPERGLY) 142 mmol/L (136-145); CREATININE 0.76 mg/dL (0.70-1.30); SODIUM 140 mmol/L (136-145); TOTAL PROTEIN 5.3 g/dL (6.4-8.2); eGFR BLACK RACES > 60 (>60); eGFR NON BLACK RACES > 60 (>60)
--- NOTE | 2017-05-07 06:45 | RAD ---
HISTORY: Shortness of breath Study: Portable AP chest Comparison: Yesterday Findings: The trachea is midline. The cardiac silhouette is unremarkable. There is persistent airspace diseas e with air bronchograms in the right upper lobe. The lungs are hyperinflated. There is no obvious ple ural effusion.. The bony thorax is unremarkable. IMPRESSION: 1. Persistent right upper lobe pneumonia and probable COPD Reported By:
[2017-05-07 06:51] LABS: BAND NEUTROPHILS % 2 % (0-10)
[2017-05-07 06:52] LABS: PLATELET MORPHOLOGY COMMENT NORMAL (NORMAL)
[2017-05-07] MEDS: LEVAQUIN PREMIX IV 750 MG 750 MG/150 ML BAG IV SCH (08:39)
[2017-05-07 09:06] VITALS: BP 140/83
[2017-05-07] MEDS: MUCOMYST 20% 200 MG/ML NEB SCH (09:28)
[2017-05-07] MEDS: DUONEB 0.5 MG/3 MG NEB PRN (09:28)
== END 2017-05-07 12:55 | disposition home or self-care (01) | DRG 179 ==
LOC: ER 11:56 → ICU 14:15
PROVIDERS: ADMIT Internal Medicine; ATTEND Internal Medicine
PROC: 3E0234Z Introduction of Serum, Toxoid and Vaccine into Muscle, Percutaneous Approach (ICD-10-PCS; principal; 2017-04-30)
DX: J15.5 Pneumonia due to Escherichia coli (principal); R06.03 Acute respiratory distress; M13.89 Other specified arthritis, multiple sites; R94.31 Abnormal electrocardiogram [ECG] [EKG]; R06.02 Shortness of breath; I25.10 Atherosclerotic heart disease of native coronary artery without angina pectoris; I10 Essential (primary) hypertension; R53.1 Weakness; Z72.0 Tobacco use; J44.9 Chronic obstructive pulmonary disease, unspecified; B96.89 Other specified bacterial agents as the cause of diseases classified elsewhere; Z23 Encounter for immunization
CPT/HCPCS: 36415; 36600; 71010; 71020; 71260; 80048; 80053; 82803; 83605; 83735; 84132; 85025; 87040; 87070; 87077; 87186; 87205; 90686; 93005; 93010; 94640; 94667; 94668; 94669; 96365; 96367; 96374; 99285; A4222; J0456; J1940; J1956; J2543; J2920; J2930; J3480; J7608; J7620